=== PATIENT | female | born 1980 | race Caucasian/White ===

== ENCOUNTER 2020-07-25 13:53 | Emergency (ER) | payer BC, OTHER ==
[~2020-07-25] VITALS: Ht 170.2 cm; Wt 114.3 kg
== END 2020-07-25 14:34 | disposition home or self-care (01) ==
LOC: ER 13:53
DX: M72.2 Plantar fascial fibromatosis (principal); M77.9 Enthesopathy, unspecified
CPT/HCPCS: 29515; 99282-25

== ENCOUNTER → 2021-06-14 | Outpatient (CLI) | payer BC, OTHER | LOC: LAB SHORT 09:16 | DX: J02.9 Acute pharyngitis, unspecified (principal) | CPT/HCPCS: 87081 ==

== ENCOUNTER 2021-09-18 07:18 | Emergency (ER) | payer BC, OTHER ==
[~2021-09-18] VITALS: Ht 172.7 cm; Wt 122.5 kg
[2021-09-18] MEDS ORDERED: VALA500 PO (08:09)
[2021-09-18] MEDS ORDERED: PROC5 PO (08:58)
== END 2021-09-18 09:10 | disposition home or self-care (01) ==
LOC: ER 07:18
DX: S09.90XA Unspecified injury of head, initial encounter (principal); S16.1XXA Strain of muscle, fascia and tendon at neck level, initial encounter; W55.12XA Struck by horse, initial encounter; Z88.1 Allergy status to other antibiotic agents; Z88.5 Allergy status to narcotic agent; Z88.8 Allergy status to other drugs, medicaments and biological substances; Z79.899 Other long term (current) drug therapy; Z87.891 Personal history of nicotine dependence
CPT/HCPCS: 70450; 72125; A9270

== ENCOUNTER 2022-12-02 06:21 | Emergency (ER) | payer BC, OTHER ==
[~2022-12-02] VITALS: Ht 170.2 cm; Wt 120.2 kg
[~2022-12-02 06:21] MED LIST: PROC5 PO; VALA500 PO
[2022-12-02 06:41] VITALS: BP 140/95
[2022-12-02] MEDS ORDERED: Ventolin/Prove6.7 GM INH (06:45)
[2022-12-02] MEDS ORDERED: CEPH500 PO (07:24)
== END 2022-12-02 07:39 | disposition home or self-care (01) ==
LOC: ER 06:21
DX: N60.01 Solitary cyst of right breast (principal); J45.909 Unspecified asthma, uncomplicated; Z79.899 Other long term (current) drug therapy
CPT/HCPCS: 99282

== ENCOUNTER 2024-04-15 10:49 | Day surgery (SDC) | payer BC, OTHER ==
[~2024-04-15] VITALS: Ht 170.2 cm; Wt 126.2 kg
[~2024-04-15 10:49] MED LIST changes: +CEPH500 PO; +Lactated Ringer's 1,000 ML IV ONE; +Ventolin/Prove6.7 GM INH
[2024-04-15] MEDS ORDERED: Lactated Ringer's 1,000 ML IV ONE (11:53)
--- NOTE | 2024-04-15 11:54 | NUR ---
04/15/24 1154 Noy Marlow IN ROOM WITH PT, NO QUESTIONS OR CONCERNS AT THIS TIME
[2024-04-15] MEDS ORDERED: propofoL 20 ML IV ONE ×2 (12:09→12:30)
[2024-04-15] MEDS ORDERED: FentaNYL Citrate 50 MCG/ML 2 ML Injection ONE (12:10)
[2024-04-15] MEDS ORDERED: Dexamethasone Sod Phos 10 MG/ML 1ML VIAL ONE (12:47)
[2024-04-15] MEDS ORDERED: Ipratropium/Albuterol SulF 2.5-0.5MG/3 ML Amp ONE (13:24)
[2024-04-15] MEDS ORDERED: OxyCODONE 5 mg/Acetamin 325 mg TABLET ONE (14:14)
[2024-04-15 14:18] VITALS: BP 148/84
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
--- NOTE | 2024-04-15 17:14 | NUR ---
04/15/241713 Mignon Pagan SPOKE TO MISA ECKERT IN IMAGING AND SHE STATED THAT READ THE X-RAY AND THERE WERE NO SIGNS OF ASPIRATION FOR THIS PT. PRASANNA ROMERO LISTENED TO PT BILAT LUNGS BOTH UPPER AND LOWER AND THEY WERE CTA. PT DENIED SOB, AND CHEST PAIN.
[2024-04-23 05:36] LABS: HPV HIGH RISK BY TMA Not Detected; HPV SOURCE Not Provided
== END 2024-04-15 14:39 | disposition home or self-care (01) ==
LOC: ORSCSDS 10:49
PROVIDERS: Obstetrics & Gynecology
PROC: 8E0UXY7 Examination of Female Reproductive System (ICD-10-PCS; principal; 2024-04-15 12:00)
PROC: 0UDB8ZX Extraction of Endometrium, Via Natural or Artificial Opening Endoscopic, Diagnostic (ICD-10-PCS; principal; 2024-04-15 12:00)
DX: N92.1 Excessive and frequent menstruation with irregular cycle (principal); N94.6 Dysmenorrhea, unspecified; N84.0 Polyp of corpus uteri; F43.0 Acute stress reaction; K21.9 Gastro-esophageal reflux disease without esophagitis; Z87.891 Personal history of nicotine dependence; J45.909 Unspecified asthma, uncomplicated; F31.9 Bipolar disorder, unspecified; E66.01 Morbid (severe) obesity due to excess calories; Z68.41 Body mass index [BMI] 40.0-44.9, adult; Z79.899 Other long term (current) drug therapy
CPT/HCPCS: 71045; 76830; 76856; 87624; 88305; A9270; G0123; J1100; J2704; J3010; J7120